=== PATIENT | female | born 2000 | race Caucasian/White ===

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

== ENCOUNTER 2019-10-19 13:10 | Emergency (ER) | payer SELFPAY ==
[~2019-10-19] VITALS: Ht 170.2 cm; Wt 113.6 kg
[~2019-10-19 13:10] MED LIST changes: +ACE65ERTAB PO; +BACT800T5 PO; +CIPR-249 PO; +HYDR-3715 PO; +K-TA1TAB PO; +KETO10TAB PO; +MEDR1VL IM; +NAPR-837 PO; -NAPR500T PO; +NORC1TAB7 PO; +PENI500T PO; +PERC5TAB12 PO; +PYRI1TAB5 PO; +ZOFR4TAB14 PO
[2019-10-19] MEDS ORDERED: CETACAINE SPRAY 5GM As Ordered ONE (13:33)
[2019-10-19] MEDS ORDERED: ETHYL CHLORIDE AER SPRAY 105 ML TOP ONE (13:45)
[2019-10-19] MEDS ORDERED: IBUP-1022 PO (14:12)
[2019-10-19] MEDS ORDERED: AUGM875T28 PO (14:12)
[2019-10-19 14:19] VITALS: BP 148/76
== END 2019-10-19 14:33 | disposition home or self-care (01) ==
LOC: M ED 13:10
DX: L05.91 Pilonidal cyst without abscess (principal); Z88.8 Allergy status to other drugs, medicaments and biological substances

== ENCOUNTER 2020-03-16 06:22 | Emergency (ER) | payer SELFPAY ==
[~2020-03-16] VITALS: Ht 170.2 cm; Wt 106.9 kg
[~2020-03-16 06:22] MED LIST changes: +AUGM875T28 PO; +IBUP-1022 PO
[2020-03-16] MEDS ORDERED: NS 1,000 ML IV ONE (06:45)
[2020-03-16 07:18] LABS: BASO # 0.1 10^3/uL (0.0-0.2); BASO % 0.4 % (0.0-1.0); EOS # 0.3 10^3/uL (0.0-0.5); EOS % 2.3 % (0.0-3.0); HEMATOCRIT 40.6 % (36.0-47.0); HEMOGLOBIN 13.5 g/dl (12.0-15.5); LYMPH # 3.2 10^3/uL (1.5-5.0); MEAN CORPUSCULAR HEMOGLOBIN 28.5 pg (27.0-33.0); MEAN CORPUSCULAR HGB CONC 33.3 g/dl (32.0-36.5); MEAN CORPUSCULAR VOLUME 85.8 fl (80.0-96.0); MONO # 0.5 10^3/uL (0.0-0.8); MONO % 3.6 % (0.0-5.0); NEUTROPHILS # 10.5 10^3/uL (1.5-8.5); NEUTROPHILS % 71.4 % (36.0-66.0); PLATELET COUNT, AUTOMATED 389 10^3/uL (150-450); RED BLOOD COUNT 4.73 10^6/uL (4.00-5.40); WHITE BLOOD COUNT 14.8 10^3/uL (4.0-10.0)
[2020-03-16] MEDS ORDERED: ISOVUE-370 76% 100ML VIAL As Ordered ONE (07:39)
[2020-03-16 07:41] LABS: BILIRUBIN,DIRECT 0.1 MG/DL (0.0-0.2); BILIRUBIN,TOTAL 0.3 MG/DL (0.2-1.0); TOTAL PROTEIN 7.9 GM/DL (6.4-8.2)
[2020-03-16] MEDS ORDERED: KETOROLAC 30 MG/ML 1ML VIAL IV ONE (07:45)
--- NOTE | 2020-03-16 08:12 | REPVR ---
PROCEDURE INFORMATION: Exam: CT Abdomen And Pelvis With Contrast Exam date and time: 03/16/2020 7:25 AM Age: 19 years old Clinical indication: Abdominal pain; Flank; Right lower quadrant (rlq); Additional info: Right flank, rlq pain with hematuria TECHNIQUE: Imaging protocol: Computed tomography of the abdomen and pelvis with intravenous contrast. Radiation optimization: All CT scans at this facility use at least one of these dose optimization techniques: automated exposure control; mA and/or kV adjustment per patient size (includes targeted exams where dose is matched to clinical indication); or iterative reconstruction. Contrast material: ISOVUE 370; Contrast volume: 100 ml; Contrast route: INTRAVENOUS (IV); COMPARISON: RENAL US 12/11/2017 4:36 PM FINDINGS: Mediastinal space: There is small sliding hiatal hernia. Liver: Normal. No mass. Gallbladder and bile ducts: Normal. No calcified stones. No ductal dilation. Pancreas: Normal. No ductal dilation. Spleen: Normal. No splenomegaly. Adrenals: Normal. No mass. Kidneys and ureters: There is a 2-3 mm obstructing stone in the distal right ureter with mild to moderate proximal hydronephrosis and hydroureter. Stomach and bowel: Unremarkable. No obstruction. No mucosal thickening. Appendix: No evidence of appendicitis. Intraperitoneal space: Unremarkable. No free air. No significant fluid collection. Vasculature: Unremarkable. No abdominal aortic aneurysm. Lymph nodes: Unremarkable. No enlarged lymph nodes. Bladder: Unremarkable as visualized. Reproductive: There is a 7.8 x 5.9 x 5.8 cm right adnexal mass containing fat and soft tissue density. Bones/joints: There is bilateral L5 spondylolysis with grade 1 anterolisthesis of L5 on S1. No acute fracture. Soft tissues: Unremarkable. IMPRESSION: 1. No CT evidence of acute appendicitis. 2. 2-3 mm distal right ureteral obstructing stone with mild to moderate proximal hydronephrosis. 3. 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 4. Small sliding hiatal hernia. Electronically signed by: Clifford Vasques On 03/16/2020 08:12:11 AM
[2020-03-16] MEDS ORDERED: cefTRIAXone SOD 1 GM in D5W MINI-BAG PLUS 50 ML IV ONE (08:45)
[2020-03-16] MEDS ORDERED: TAMSULOSIN 0.4 MG CAP PO ONE (08:45)
--- NOTE | 2020-03-16 11:09 | REP ---
PELVIC SONOGRAPHY: HISTORY: Large cyst seen on CT study from March 16, 2020. Rule out torsion. FINDINGS: Uterine dimensions are normal measured at 6.6 x 2.7 x 3.3 cm. Endometrial echo is 0.7 cm thick. No focal uterine mass is seen. The complex dermoid cyst seen by CT is noted by sonography. This appears to occupy the entire right adnexa measuring 8.9 x 4.8 x 6.6 cm. There is Doppler flow in the right ovary with resistive index 0.78. The left ovary is normal measuring 3.4 x 2.6 x 2.8 cm. Its Doppler flow is normal with resistive index 0.57. No free cul-de-sac fluid is visible by ultrasound. IMPRESSION: 8.9 cm dermoid cyst right ovary. Doppler flow is present in both ovaries. Otherwise negative pelvic sonography. Electronically Signed by Balaji Navarro MD 03/16/2020 11:27 A
[2020-03-16] MEDS ORDERED: CIPR-249 PO (11:14)
[2020-03-16] MEDS ORDERED: FLOM0.4C39 PO (11:15)
[2020-03-16 11:26] VITALS: BP 126/63
== END 2020-03-16 11:28 | disposition home or self-care (01) ==
LOC: M ED 06:22
DX: N10 Acute pyelonephritis (principal); N20.0 Calculus of kidney; N83.201 Unspecified ovarian cyst, right side; K21.9 Gastro-esophageal reflux disease without esophagitis; Z79.899 Other long term (current) drug therapy; Z88.8 Allergy status to other drugs, medicaments and biological substances
CPT/HCPCS: 36415; 74177; 76830; 76856; 80047; 80076; 81001; 83690; 84702; 85025; 87086; 93976; 96361; 96365; 96375; 99284; J0696; J1885; Q9967

== ENCOUNTER 2020-03-19 10:40 | Emergency (ER) | payer SELFPAY ==
[~2020-03-19] VITALS: Ht 170.2 cm; Wt 72.7 kg
[~2020-03-19 10:40] MED LIST changes: +FLOM0.4C39 PO
[2020-03-19 11:53] LABS: BASO % 0.4 % (0.0-1.0); EOS # 0.3 10^3/uL (0.0-0.5); EOS % 2.6 % (0.0-3.0); HEMATOCRIT 41.1 % (36.0-47.0); HEMOGLOBIN 13.2 g/dl (12.0-15.5); LYMPH # 2.3 10^3/uL (1.5-5.0); LYMPH % 20.9 % (24.0-44.0); MEAN CORPUSCULAR HEMOGLOBIN 27.7 pg (27.0-33.0); MEAN CORPUSCULAR HGB CONC 32.1 g/dl (32.0-36.5); MEAN CORPUSCULAR VOLUME 86.3 fl (80.0-96.0); MONO # 0.5 10^3/uL (0.0-0.8); MONO % 4.7 % (0.0-5.0); NEUTROPHILS # 7.7 10^3/uL (1.5-8.5); NEUTROPHILS % 70.9 % (36.0-66.0); PLATELET COUNT, AUTOMATED 348 10^3/uL (150-450); RED BLOOD COUNT 4.76 10^6/uL (4.00-5.40); WHITE BLOOD COUNT 10.8 10^3/uL (4.0-10.0)
[2020-03-19 12:03] VITALS: BP 143/67
== END 2020-03-19 12:13 | disposition home or self-care (01) ==
LOC: M ED 10:40
DX: N94.89 Other specified conditions associated with female genital organs and menstrual cycle (principal); J45.909 Unspecified asthma, uncomplicated; Z88.8 Allergy status to other drugs, medicaments and biological substances

== ENCOUNTER → 2020-10-11 | Outpatient (CLI) | payer SELFPAY | LOC: M LABSMTC 11:06 | PROVIDERS: ATTEND Pediatrics | DX: Z20.822 Contact with and (suspected) exposure to COVID-19 (principal) ==

== ENCOUNTER 2022-07-05 18:04 | Emergency (ER) | payer MEDICAID, OTHER, SELFPAY ==
[~2022-07-05] VITALS: Ht 170.2 cm; Wt 81.8 kg
[2022-07-05 18:35] LABS: BASO % 0.2 % (0.0-1.0); EOS # 0.3 10^3/uL (0.0-0.5); EOS % 2.1 % (0.0-3.0); HEMATOCRIT 34.5 % (36.0-47.0); HEMOGLOBIN 11.6 g/dl (12.0-15.5); LYMPH # 3.2 10^3/uL (1.5-5.0); LYMPH % 19.9 % (24.0-44.0); MEAN CORPUSCULAR HEMOGLOBIN 31.1 pg (27.0-33.0); MEAN CORPUSCULAR HGB CONC 33.6 g/dl (32.0-36.5); MEAN CORPUSCULAR VOLUME 92.5 fl (80.0-96.0); MONO # 0.8 10^3/uL (0.0-0.8); MONO % 5.1 % (2.0-8.0); NEUTROPHILS # 11.6 10^3/uL (1.5-8.5); NEUTROPHILS % 72.2 % (36.0-66.0); PLATELET COUNT, AUTOMATED 304 10^3/uL (150-450); RED BLOOD COUNT 3.73 10^6/uL (4.00-5.40); WHITE BLOOD COUNT 16.1 10^3/uL (4.0-10.0)
[2022-07-05 19:14] LABS: BLOOD UREA NITROGEN 5 MG/DL (7-18); CARBON DIOXIDE LEVEL 23 MEQ/L (21-32); CHLORIDE LEVEL 109 MEQ/L (98-107); CREATININE FOR GFR 0.76 MG/DL (0.55-1.30); GLOMERULAR FILTRATION RATE > 60.0 (>60); GLUCOSE, FASTING 88 MG/DL (70-100); POTASSIUM SERUM 3.4 MEQ/L (3.5-5.1); SODIUM LEVEL 139 MEQ/L (136-145)
[2022-07-05 19:50] LABS: APPEARANCE, URINE MANUAL HAZY (CLEAR); COLOR, URINE MANUAL YELLOW (YELLOW)
[2022-07-05 20:00] LABS: GLUCOSE, URINE (UA) MANUAL NEGATIVE (NEGATIVE); KETONE, URINE MANUAL NEGATIVE (NEGATIVE); PROTEIN, URINE MANUAL TRACE mg/dL (NEGATIVE); UROBILINOGEN, URINE MANUAL NORMAL (NORMAL)
[2022-07-05 20:01] LABS: BILIRUBIN, URINE MANUAL NEGATIVE (NEGATIVE); BLOOD URINE MANUAL POSITIVE (NEGATIVE); LEUKOCYTE ESTERASE, URINE MAN POSITIVE (NEGATIVE); NITRITE, URINE MANUAL POSITIVE (NEGATIVE)
[2022-07-05 20:11] LABS: WBC, URINE 15-20 /hpf (0-3)
[2022-07-05 20:12] LABS: BACTERIA, URINE LARGE AMOUNT; CALCIUM OXALATE CRYSTALS,URINE SMALL AMOUNT /hpf; MUCUS, URINE MOD AMOUNT (NEGATIVE); SQUAMOUS EPITHELIAL CELL URINE LARGE AMOUNT /hpf (SMALL AMT)
[2022-07-05 20:13] LABS: HYALINE CAST, URINE NONE SEEN /lpf (0-1)
[2022-07-05] MEDS ORDERED: NITROFURANTOIN (MACROBID) 100 MG CAP PO ONE (20:50)
[2022-07-05] MEDS ORDERED: NITR1CAP11 PO (20:51)
[2022-07-05 21:01] VITALS: BP 137/82
== END 2022-07-05 21:05 | disposition home or self-care (01) ==
LOC: M ED 18:04
DX: O23.42 Unspecified infection of urinary tract in pregnancy, second trimester (principal); O43.92 Unspecified placental disorder, second trimester; Z3A.17 17 weeks gestation of pregnancy; Z79.899 Other long term (current) drug therapy; Z88.8 Allergy status to other drugs, medicaments and biological substances

== ENCOUNTER → 2022-07-23 | Outpatient (CLI) | payer OTHER ==
[~2022-07-23] MED LIST changes: +NITR1CAP11 PO
[2022-07-23 16:05] LABS: BASO % 0.3 % (0.0-1.0); EOS # 0.3 10^3/uL (0.0-0.5); EOS % 2.1 % (0.0-3.0); HEMATOCRIT 38.5 % (36.0-47.0); HEMOGLOBIN 12.5 g/dl (12.0-15.5); LYMPH # 2.4 10^3/uL (1.5-5.0); LYMPH % 18.4 % (24.0-44.0); MEAN CORPUSCULAR HEMOGLOBIN 30.9 pg (27.0-33.0); MEAN CORPUSCULAR HGB CONC 32.5 g/dl (32.0-36.5); MEAN CORPUSCULAR VOLUME 95.3 fl (80.0-96.0); MONO # 0.6 10^3/uL (0.0-0.8); MONO % 4.4 % (2.0-8.0); NEUTROPHILS # 9.7 10^3/uL (1.5-8.5); NEUTROPHILS % 74.2 % (36.0-66.0); PLATELET COUNT, AUTOMATED 308 10^3/uL (150-450); RED BLOOD COUNT 4.04 10^6/uL (4.00-5.40)
[2022-07-23 17:40] LABS: HEPATITIS C VIRUS ABY INDEX < 0.0 INDEX (<0.8); HIV 1&2 SCREEN CENTAUR NEGATIVE (NEGATIVE)
[2022-07-23 17:48] LABS: GC DNA AMPLIFICATION NEGATIVE (NEGATIVE)
== END ==
LOC: M PLALAB 13:13
PROVIDERS: ATTEND Advanced Practice Midwife
DX: O30.042 Twin pregnancy, dichorionic/diamniotic, second trimester (principal); Z3A.00 Weeks of gestation of pregnancy not specified

== ENCOUNTER → 2022-08-04 | Outpatient (CLI) | payer MEDICAID | LOC: M WHC 10:07 | PROVIDERS: ATTEND Specialist | DX: Z36.89 Encounter for other specified antenatal screening (principal); Z3A.21 21 weeks gestation of pregnancy ==

== ENCOUNTER 2022-08-07 03:56 | Emergency (ER) | payer MEDICAID ==
[~2022-08-07] VITALS: Ht 170.2 cm; Wt 85.4 kg
[2022-08-07 03:57] VITALS: BP 136/67
[2022-08-07] MEDS ORDERED: MACR100C43 PO (13:47)
[2022-08-07] MEDS ORDERED: ONDA4TAB6 PO (13:48)
== END 2022-08-07 04:08 | disposition admitted as inpatient to this hospital (09) ==
LOC: M ED 03:56
DX: Z53.21 Procedure and treatment not carried out due to patient leaving prior to being seen by health care provider (principal)

== ENCOUNTER 2022-08-07 04:10 | Outpatient (CLI) | payer MEDICAID ==
[~2022-08-07] VITALS: Ht 170.2 cm; Wt 85.4 kg
[2022-08-07 04:48] VITALS: BP 126/72
[2022-08-07 05:48] LABS: APPEARANCE, URINE MANUAL CLOUDY (CLEAR); COLOR, URINE MANUAL YELLOW (YELLOW)
[2022-08-07 05:49] LABS: PROTEIN, URINE MANUAL 1+ mg/dL (NEGATIVE); SPECIFIC GRAVITY,URINE MANUAL 1.015 (1.002-1.035)
[2022-08-07 05:50] LABS: BILIRUBIN, URINE MANUAL NEGATIVE (NEGATIVE); BLOOD URINE MANUAL TRACE (NEGATIVE); GLUCOSE, URINE (UA) MANUAL NEGATIVE (NEGATIVE); KETONE, URINE MANUAL NEGATIVE (NEGATIVE); LEUKOCYTE ESTERASE, URINE MAN POSITIVE (NEGATIVE); NITRITE, URINE MANUAL POSITIVE (NEGATIVE); UROBILINOGEN, URINE MANUAL NORMAL (NORMAL)
[2022-08-07 05:53] LABS: HEMATOCRIT 36.9 % (36.0-47.0); HEMOGLOBIN 12.5 g/dl (12.0-15.5); MEAN CORPUSCULAR HEMOGLOBIN 32.1 pg (27.0-33.0); MEAN CORPUSCULAR HGB CONC 33.9 g/dl (32.0-36.5); MEAN CORPUSCULAR VOLUME 94.9 fl (80.0-96.0); PLATELET COUNT, AUTOMATED 314 10^3/uL (150-450); RED BLOOD COUNT 3.89 10^6/uL (4.00-5.40); WHITE BLOOD COUNT 18.3 10^3/uL (4.0-10.0)
[2022-08-07 05:55] LABS: BACTERIA, URINE LARGE AMOUNT
[2022-08-07 05:56] LABS: HYALINE CAST, URINE NONE SEEN /lpf (0-1); MUCUS, URINE LARGE AMOUNT (NEGATIVE); SQUAMOUS EPITHELIAL CELL URINE MOD AMOUNT /hpf (SMALL AMT)
[2022-08-07] MEDS ORDERED: ONDANSETRON 4MG 2ML VIAL IV ONE (06:25)
[2022-08-07] MEDS ORDERED: ONDANSETRON 4MG 2ML VIAL As Ordered ONE (06:28)
[2022-08-07 06:35] LABS: ALBUMIN 3.3 GM/DL (3.2-5.2); ALT/SGPT 9 U/L (12-78); BILIRUBIN,TOTAL 0.2 MG/DL (0.2-1.0); BLOOD UREA NITROGEN 9 MG/DL (7-18); CALCIUM LEVEL 9.2 MG/DL (8.5-10.1); CARBON DIOXIDE LEVEL 23 MEQ/L (21-32); CHLORIDE LEVEL 108 MEQ/L (98-107); CREATININE FOR GFR 0.68 MG/DL (0.55-1.30); GLOMERULAR FILTRATION RATE > 60.0 (>60); GLUCOSE, FASTING 85 MG/DL (70-100); POTASSIUM SERUM 3.9 MEQ/L (3.5-5.1); SODIUM LEVEL 136 MEQ/L (136-145); TOTAL PROTEIN 6.8 GM/DL (6.4-8.2)
[2022-08-07] MEDS ORDERED: cefTRIAXone SOD 2 GM in D5W MINI-BAG PLUS 50 ML IV SCH (09:25)
[2022-08-07 10:48] VITALS: BP 146/88
[2022-08-07] MEDS ORDERED: ONDANSETRON 4MG 2ML VIAL IV PRN (11:15)
[2022-08-07 11:29] VITALS: BP 138/77
[2022-08-07] MEDS ORDERED: BICITRA 30ML SOLN UDC PO ONE (11:35)
[2022-08-07] MEDS ORDERED: MACR100C43 PO (13:47)
[2022-08-07] MEDS ORDERED: ONDA4TAB6 PO (13:48)
[2022-08-07 13:49] VITALS: BP 144/75
== END 2022-08-07 14:15 | disposition home or self-care (01) ==
LOC: M LDO 04:10
PROVIDERS: ATTEND Advanced Practice Midwife
DX: O23.42 Unspecified infection of urinary tract in pregnancy, second trimester (principal); Z3A.21 21 weeks gestation of pregnancy
CPT/HCPCS: 80053; 81000; 85027; 87486; 87581; 87633; 87798; 96374; 96376; J0696; J2405

== ENCOUNTER 2022-09-19 06:39 | Inpatient (IN) | payer MEDICAID ==
[~2022-09-19] VITALS: Ht 160 cm; Wt 82.0 kg
[2022-09-19] VITALS (58 sets, daily range): BP systolic 144–194; BP diastolic 67–108
[~2022-09-19 06:39] MED LIST changes: +MACR100C43 PO; +ONDA4TAB6 PO
[2022-09-19] MEDS ORDERED: ceFAZolin 2 GM/D5W 50 ML IV BAG As Ordered ONE (07:12)
[2022-09-19] MEDS ORDERED: MIDAZOLAM INJ 2MG/2ML VIAL (J2250 PER 1MG) As Ordered ONE (07:24)
[2022-09-19] MEDS ORDERED: MULTTAB20 PO (07:25)
[2022-09-19] MEDS ORDERED: propofoL 200 MG/20 ML VIAL As Ordered ONE (07:25)
[2022-09-19] MEDS ORDERED: ONDANSETRON 4MG 2ML VIAL As Ordered ONE (07:25)
[2022-09-19] MEDS ORDERED: SUCCINYLCHOLINE 100MG/5ML SYRINGE As Ordered ONE (07:25)
[2022-09-19] MEDS ORDERED: fentaNYL 100 MCG/2 ML INJECTION As Ordered ONE (07:25)
[2022-09-19] MEDS ORDERED: ACETAMINOPHEN 1000MG 100ML IV BAG As Ordered ONE (07:27)
[2022-09-19] MEDS ORDERED: OXYTOCIN 30UNITS IN 0.9% NaCl 500ML IV BAG As Ordered ONE (07:46)
[2022-09-19] MEDS ORDERED: KETOROLAC 60MG 2ML VIAL As Ordered ONE (07:46)
[2022-09-19] MEDS ORDERED: ceFAZolin SOD 2 GM in IV 1 EA IV STA (07:50)
[2022-09-19] MEDS ORDERED: LR 1,000 ML IV SCH ×2 (07:50→08:15)
[2022-09-19] MEDS ORDERED: RHOGAM 300MCG (1500IU) INJ IM SCH (08:00)
[2022-09-19] MEDS ORDERED: OXYTOCIN DRIP 30 UNITS in IV 1 EA IV SCH (08:00)
[2022-09-19] MEDS ORDERED: fentaNYL 100 MCG/2 ML INJECTION IV PRN (08:15)
[2022-09-19] MEDS ORDERED: PROMETHAZINE 25MG/ML 1ML VIAL IV PRN (08:15)
[2022-09-19] MEDS ORDERED: METOCLOPRAMIDE INJ 10MG/2ML VIAL IV PRN (08:15)
[2022-09-19] MEDS ORDERED: oxyCODONE 5MG TAB PO PRN (08:15)
[2022-09-19] MEDS ORDERED: HYDROMORPHONE HCL 0.5 MG/ 0.5 ML SYRINGE (J1170 PER 1) IV PRN (08:15)
[2022-09-19 08:57] LABS: HEMOGLOBIN 11.8 g/dl (12.0-15.5); MEAN CORPUSCULAR HEMOGLOBIN 32.5 pg (27.0-33.0); MEAN CORPUSCULAR HGB CONC 33.7 g/dl (32.0-36.5); MEAN CORPUSCULAR VOLUME 96.4 fl (80.0-96.0); PLATELET COUNT, AUTOMATED 247 10^3/uL (150-450); RED BLOOD COUNT 3.63 10^6/uL (4.00-5.40); WHITE BLOOD COUNT 24.4 10^3/uL (4.0-10.0)
[2022-09-19] MEDS: PERCOCET 5MG/325MG TAB PO PRN ×3 (13:01→22:11)
[2022-09-19 13:05] LABS: BASO # 0.1 10^3/uL (0.0-0.2); BASO % 0.2 % (0.0-1.0); EOS % 0.1 % (0.0-3.0); LYMPH # 1.4 10^3/uL (1.5-5.0); LYMPH % 5.6 % (24.0-44.0); MONO # 0.6 10^3/uL (0.0-0.8); MONO % 2.6 % (2.0-8.0); NEUTROPHILS # 22.1 10^3/uL (1.5-8.5); NEUTROPHILS % 90.9 % (36.0-66.0)
[2022-09-19] MEDS: KETOROLAC 30 MG/ML 1ML VIAL IV SCH ×2 (13:05→20:47)
[2022-09-19 13:07] LABS: URIC ACID 4.3 MG/DL (3.1-7.8)
[2022-09-19 13:09] LABS: LDH LACTATE DEHYDROGENASE 188 U/L (120-246)
[2022-09-19 13:10] LABS: ALT/SGPT < 9 U/L (7.0-40); AST/SGOT 16 U/L (<34); BILIRUBIN,TOTAL 0.2 MG/DL (0.3-1.2); CREATININE FOR GFR 0.52 MG/DL (0.55-1.30); GLOMERULAR FILTRATION RATE > 60.0 (>60)
[2022-09-19 13:45] LABS: AMPHETAMINES URINE REFLEX NEGATIVE (NEGATIVE); BARBITURATES URINE REFLEX NEGATIVE (NEGATIVE); COCAINE METABOLITE URINE REFLE NEGATIVE (NEGATIVE); METHADONE URINE REFLEX NEGATIVE (NEGATIVE); OPIATES URINE REFLEX NEGATIVE (NEGATIVE); PHENCYCLIDINE URINE REFLEX NEGATIVE (NEGATIVE)
[2022-09-19 15:15] LABS: BENZODIAZEPINES URINE REFLEX PENDING CONFIRMATION (NEGATIVE); CANNABINOIDS URINE REFLEX PENDING CONFIRMATION (NEGATIVE)
[2022-09-19] MEDS: DOCUSATE SODIUM 100MG CAPSULE PO SCH ×2 (15:37→21:17)
[2022-09-19] MEDS: PRENATAL VITAMINS CHEWABLE TABLET PO SCH (15:37)
[2022-09-19] MEDS: LABETALOL 200 MG TAB PO SCH ×2 (15:51→21:16)
[2022-09-19] MEDS: SIMETHICONE 80MG CHEW TAB PO PRN (17:13)
[2022-09-19] MEDS ORDERED: LABETALOL 100MG/20ML VIAL IV STA ×2 (18:51→19:43)
[2022-09-20] VITALS (39 sets, daily range): BP systolic 116–179; BP diastolic 56–95
[2022-09-20] MEDS: KETOROLAC 30 MG/ML 1ML VIAL IV SCH (02:49)
[2022-09-20] MEDS: SIMETHICONE 80MG CHEW TAB PO PRN (04:03)
[2022-09-20] MEDS: PERCOCET 5MG/325MG TAB PO PRN ×3 (04:11→20:21)
[2022-09-20 08:35] LABS: HEMATOCRIT 31.9 % (36.0-47.0); HEMOGLOBIN 10.6 g/dl (12.0-15.5); MEAN CORPUSCULAR HEMOGLOBIN 32.2 pg (27.0-33.0); MEAN CORPUSCULAR HGB CONC 33.2 g/dl (32.0-36.5); PLATELET COUNT, AUTOMATED 182 10^3/uL (150-450); RED BLOOD COUNT 3.29 10^6/uL (4.00-5.40); WHITE BLOOD COUNT 23.9 10^3/uL (4.0-10.0)
[2022-09-20 08:56] LABS: URIC ACID 4.4 MG/DL (3.1-7.8)
[2022-09-20 08:58] LABS: LDH LACTATE DEHYDROGENASE 221 U/L (120-246)
[2022-09-20 09:00] LABS: ALT/SGPT < 9 U/L (7.0-40); AST/SGOT 20 U/L (<34); BILIRUBIN,TOTAL 0.3 MG/DL (0.3-1.2); CREATININE FOR GFR 0.49 MG/DL (0.55-1.30); GLOMERULAR FILTRATION RATE > 60.0 (>60)
[2022-09-20] MEDS: IBUPROFEN 800 MG TAB PO SCH ×2 (09:10→17:45)
[2022-09-20] MEDS: LABETALOL 200 MG TAB PO SCH ×2 (09:11→18:34)
[2022-09-20] MEDS: DOCUSATE SODIUM 100MG CAPSULE PO SCH ×2 (09:11→20:17)
[2022-09-20] MEDS: PRENATAL VITAMINS CHEWABLE TABLET PO SCH (09:11)
[2022-09-21 02:00] VITALS: BP 156/90
[2022-09-21] MEDS: SIMETHICONE 80MG CHEW TAB PO PRN (02:01)
[2022-09-21] MEDS: IBUPROFEN 800 MG TAB PO SCH ×2 (02:02→10:17)
[2022-09-21 06:00] VITALS: BP 138/80
[2022-09-21] MEDS: PERCOCET 5MG/325MG TAB PO PRN (08:55)
[2022-09-21] MEDS ORDERED: MEASLES,MUMPS,RUBELLA VACCINE INJ (MMR-II) SC.IMMUN ONE (09:00)
[2022-09-21 09:40] VITALS: BP_SYST 138; BP_SYST 143; BP_DIAS 69; BP_DIAS 80
[2022-09-21] MEDS: PRENATAL VITAMINS CHEWABLE TABLET PO SCH (09:43)
[2022-09-21] MEDS: DOCUSATE SODIUM 100MG CAPSULE PO SCH (09:43)
[2022-09-21 09:44] VITALS: BP 143/69
[2022-09-21] MEDS: LABETALOL 200 MG TAB PO SCH (09:44)
[2022-09-21] MEDS ORDERED: OMEP-173 PO (11:16)
[2022-09-21] MEDS ORDERED: COLA100C5 PO (11:16)
[2022-09-21] MEDS ORDERED: LABE100T6 PO (11:16)
[2022-09-21] MEDS ORDERED: IBUP80TA PO (11:16)
[2022-09-21] MEDS ORDERED: PERCOCET PO (11:16)
[2022-09-21] MEDS ORDERED: OMEPRAZOLE 20MG CAP PO SCH (11:20)
[2022-09-21] MEDS ORDERED: LABETALOL 100MG TAB PO SCH (21:00)
[2022-09-30 11:08] LABS: Benzodiazepines Negative (Cutoff=300); Cannabinoid Positive (.); Carboxy THC Conf, MS, UR >300 ng/mL (Cutoff=10)
== END 2022-09-21 14:35 | disposition home or self-care (01) | DRG 540 ==
LOC: M LDO 06:39 → M LDI 07:01 → M OBS 09-20 08:03
PROVIDERS: ADMIT Obstetrics & Gynecology; ATTEND Obstetrics & Gynecology
PROC: 10D00Z1 Extraction of Products of Conception, Low, Open Approach (ICD-10-PCS; principal; 2022-09-19 07:08)
DX: O76 Abnormality in fetal heart rate and rhythm complicating labor and delivery (principal); O45.92 Premature separation of placenta, unspecified, second trimester; O60.13X0 Preterm labor second trimester with preterm delivery third trimester, not applicable or unspecified; E66.9 Obesity, unspecified; O99.214 Obesity complicating childbirth; O13.2 Gestational [pregnancy-induced] hypertension without significant proteinuria, second trimester; Z3A.27 27 weeks gestation of pregnancy; O32.1XX0 Maternal care for breech presentation, not applicable or unspecified; Z37.1 Single stillbirth; O69.82X0 Labor and delivery complicated by other cord entanglement, without compression, not applicable or unspecified; Z88.8 Allergy status to other drugs, medicaments and biological substances

== ENCOUNTER 2022-10-21 08:38 | Observation (INO) | payer MEDICAID, OTHER ==
[~2022-10-21] VITALS: Ht 170.2 cm; Wt 83.6 kg
[~2022-10-21 08:38] MED LIST changes: +COLA100C5 PO; +IBUP80TA PO; +LABE100T6 PO; +MULTTAB20 PO; +OMEP-173 PO; +PERCOCET PO
[2022-10-21] MEDS ORDERED: MORPHINE 2 MG/ML 1ML VIAL IV ONE (09:50)
[2022-10-21] MEDS ORDERED: ONDANSETRON 4MG 2ML VIAL IV ONE (09:50)
[2022-10-21] MEDS ORDERED: NS 1,000 ML IV ONE (09:50)
[2022-10-21 09:53] LABS: BASO % 0.1 % (0.0-1.0); EOS # 0.1 10^3/uL (0.0-0.5); EOS % 0.3 % (0.0-3.0); HEMATOCRIT 34.3 % (36.0-47.0); HEMOGLOBIN 11.1 g/dl (12.0-15.5); LYMPH # 1.2 10^3/uL (1.5-5.0); LYMPH % 4.6 % (24.0-44.0); MEAN CORPUSCULAR HEMOGLOBIN 29.1 pg (27.0-33.0); MEAN CORPUSCULAR HGB CONC 32.4 g/dl (32.0-36.5); MONO % 3.7 % (2.0-8.0); NEUTROPHILS # 24.3 10^3/uL (1.5-8.5); NEUTROPHILS % 89.9 % (36.0-66.0); PLATELET COUNT, AUTOMATED 370 10^3/uL (150-450); RED BLOOD COUNT 3.81 10^6/uL (4.00-5.40)
[2022-10-21 10:19] LABS: HCG, SERUM QUALITATIVE NEGATIVE (NEGATIVE)
[2022-10-21 10:39] LABS: ALBUMIN 3.1 G/DL (3.2-5.2); ALKALINE PHOSPHATASE 117 U/L (46-116); ALT/SGPT < 9 U/L (7.0-40); AST/SGOT 9 U/L (<34); BILIRUBIN,DIRECT 0.2 MG/DL (<0.4); BILIRUBIN,TOTAL 0.5 MG/DL (0.3-1.2); BLOOD UREA NITROGEN 23 MG/DL (9-23); CALCIUM LEVEL 9.5 MG/DL (8.5-10.1); CARBON DIOXIDE LEVEL 24 MMOL/L (20-31); CHLORIDE LEVEL 102 MMOL/L (98-107); CREATININE FOR GFR 1.05 MG/DL (0.55-1.30); GLOMERULAR FILTRATION RATE > 60.0 (>60); GLUCOSE, FASTING 84 MG/DL (60-100); LIPASE 20 U/L (12-53); POTASSIUM SERUM 3.3 MMOL/L (3.5-5.1); SODIUM LEVEL 137 MMOL/L (136-145); TOTAL PROTEIN 7.6 G/DL (5.7-8.2)
[2022-10-21] MEDS ORDERED: MORPHINE 4 MG/ML 1ML VIAL IV ONE (10:55)
[2022-10-21] MEDS ORDERED: ISOVUE-370 76% 100ML VIAL As Ordered ONE (11:02)
[2022-10-21] MEDS ORDERED: cefTRIAXone SOD 1 GM in D5W MINI-BAG PLUS 50 ML IV ONE (12:45)
[2022-10-21] MEDS ORDERED: KETOROLAC 30 MG/ML 1ML VIAL IV ONE (12:55)
[2022-10-21] MEDS ORDERED: AMPICILLIN SOD 2 GM in D5W 50 ML IV SCH (14:45)
[2022-10-21] MEDS ORDERED: D5W IV ONE (14:45)
[2022-10-21] MEDS ORDERED: LR 1,000 ML IV SCH (14:45)
[2022-10-21] MEDS ORDERED: CLINDAMYCIN 600 MG in IV 1 EA IV SCH (14:45)
[2022-10-21] MEDS ORDERED: GENTAMICIN IV ONE (14:45)
[2022-10-21] MEDS: LR 1,000 ML IV SCH ×2 (15:40→22:23)
[2022-10-21] MEDS ORDERED: HOME MED LIST COMPLETE! XX SCH (16:25)
[2022-10-21] MEDS: AMPICILLIN SOD/SULBACTAM SOD 3 GM in D5W MINI-BAG PLUS 100 ML IV SCH ×2 (17:04→22:24)
[2022-10-21] MEDS ORDERED: MORPHINE 2 MG/ML 1ML VIAL IV PRN (17:05)
[2022-10-21] MEDS: PERCOCET 5MG/325MG TAB PO PRN ×2 (17:12→22:47)
[2022-10-21 19:38] LABS: RSV AMPLIFICATION NEGATIVE (NEGATIVE)
[2022-10-21] MEDS: DOCUSATE SODIUM 100MG CAPSULE PO SCH (21:55)
[2022-10-21] MEDS: IBUPROFEN 800 MG TAB PO SCH (21:55)
[2022-10-21] MEDS: ONDANSETRON 4MG 2ML VIAL IV PRN (22:37)
[2022-10-22 02:06] VITALS: BP 119/63
[2022-10-22] MEDS ORDERED: PILL CUTTER 1 EACH XX PRN (03:50)
[2022-10-22] MEDS: AMPICILLIN SOD/SULBACTAM SOD 3 GM in D5W MINI-BAG PLUS 100 ML IV SCH ×4 (05:19→23:03)
[2022-10-22] MEDS: PERCOCET 5MG/325MG TAB PO PRN ×4 (05:21→22:15)
[2022-10-22] MEDS: LR 1,000 ML IV SCH ×3 (05:48→23:03)
[2022-10-22] MEDS: IBUPROFEN 800 MG TAB PO SCH ×3 (05:49→20:02)
[2022-10-22 06:00] VITALS: BP 128/68
[2022-10-22 07:39] LABS: HEMATOCRIT 29.8 % (36.0-47.0); HEMOGLOBIN 9.6 g/dl (12.0-15.5); MEAN CORPUSCULAR HEMOGLOBIN 29.6 pg (27.0-33.0); MEAN CORPUSCULAR HGB CONC 32.2 g/dl (32.0-36.5); PLATELET COUNT, AUTOMATED 344 10^3/uL (150-450); RED BLOOD COUNT 3.24 10^6/uL (4.00-5.40); WHITE BLOOD COUNT 23.1 10^3/uL (4.0-10.0)
[2022-10-22] MEDS: DOCUSATE SODIUM 100MG CAPSULE PO SCH ×2 (09:39→20:01)
[2022-10-22 10:00] VITALS: BP 132/67
[2022-10-22] MEDS: CALCIUM CARBONATE 500 MG CHEW U/D PO PRN (13:01)
[2022-10-22 14:00] VITALS: BP 130/70
[2022-10-22 18:00] VITALS: BP 142/75
[2022-10-22 22:00] VITALS: BP 145/69
[2022-10-23 02:00] VITALS: BP 145/77
[2022-10-23] MEDS: PERCOCET 5MG/325MG TAB PO PRN ×2 (02:11→10:45)
[2022-10-23] MEDS: CALCIUM CARBONATE 500 MG CHEW U/D PO PRN (04:09)
[2022-10-23] MEDS: AMPICILLIN SOD/SULBACTAM SOD 3 GM in D5W MINI-BAG PLUS 100 ML IV SCH ×2 (05:01→10:44)
[2022-10-23] MEDS: IBUPROFEN 800 MG TAB PO SCH ×2 (05:01→13:47)
[2022-10-23 05:38] VITALS: BP 125/69
[2022-10-23] MEDS: ONDANSETRON 4MG 2ML VIAL IV PRN (08:51)
[2022-10-23] MEDS: DOCUSATE SODIUM 100MG CAPSULE PO SCH (08:51)
[2022-10-23] MEDS: LR 1,000 ML IV SCH (08:51)
[2022-10-23 10:00] VITALS: BP 145/78
[2022-10-23 14:00] VITALS: BP 126/68
[2022-10-23] MEDS ORDERED: CEPHALEXIN 500 MG CAP PO SCH (17:00)
[2022-10-23] MEDS ORDERED: CEPH25SS PO (20:14)
[2022-10-23] MEDS ORDERED: CEPH250T PO (20:16)
== END 2022-10-23 18:50 | disposition left against medical advice (07) ==
LOC: M ED 08:38 → M ED INP 08:39 → M OBS 10-22
PROVIDERS: ADMIT Obstetrics & Gynecology; ATTEND Obstetrics & Gynecology
DX: R19.04 Left lower quadrant abdominal swelling, mass and lump (principal); R19.09 Other intra-abdominal and pelvic swelling, mass and lump; C79.89 Secondary malignant neoplasm of other specified sites; N39.0 Urinary tract infection, site not specified; B96.1 Klebsiella pneumoniae [K. pneumoniae] as the cause of diseases classified elsewhere; K76.0 Fatty (change of) liver, not elsewhere classified; Z87.59 Personal history of other complications of pregnancy, childbirth and the puerperium; J45.909 Unspecified asthma, uncomplicated
CPT/HCPCS: 36415; 74177; 80048; 80076; 81000; 81015; 83690; 84703; 85025; 85027; 87088; 87186; 87631; 96361; 96365; 96366; 96367; 96375; 96376; 99284; J0295; J0696; J1885; J2270; J2405

== ENCOUNTER 2023-08-10 17:39 | Emergency (ER) | payer MEDICAID ==
[~2023-08-10] VITALS: Ht 170.2 cm; Wt 76.1 kg
[~2023-08-10 17:39] MED LIST changes: +CEPH250T PO; +CEPH25SS PO
[2023-08-10] MEDS ORDERED: ACET500P3 PO (17:48)
[2023-08-10] MEDS ORDERED: LIDOCAINE 2% MDV 20ML VIAL As Ordered ONE (18:52)
[2023-08-10] MEDS ORDERED: LIDOCAINE 1% MDV 20ML VIAL SC ONE (19:20)
[2023-08-10] MEDS ORDERED: EMLA CREAM 5GM TUBE (LIDOCAINE/PRILOCAINE) TOP ONE (19:20)
[2023-08-10] MEDS ORDERED: PERCOCET 5MG/325MG TAB PO ONE (19:20)
[2023-08-10 19:35] VITALS: BP 136/66; TEMP 96.9; O2SAT 99
[2023-08-10 19:55] LABS: BASO % 0.3 % (0.0-1.0); EOS # 0.3 10^3/uL (0.0-0.5); EOS % 1.8 % (0.0-3.0); HEMATOCRIT 33.6 % (36.0-47.0); HEMOGLOBIN 10.9 g/dl (12.0-15.5); LYMPH # 2.6 10^3/uL (1.5-5.0); LYMPH % 17.7 % (24.0-44.0); MEAN CORPUSCULAR HEMOGLOBIN 30.3 pg (27.0-33.0); MEAN CORPUSCULAR HGB CONC 32.4 g/dl (32.0-36.5); MEAN CORPUSCULAR VOLUME 93.3 fl (80.0-96.0); MONO # 0.7 10^3/uL (0.0-0.8); MONO % 4.8 % (2.0-8.0); PLATELET COUNT, AUTOMATED 348 10^3/uL (150-450); WHITE BLOOD COUNT 14.7 10^3/uL (4.0-10.0)
[2023-08-10 20:05] LABS: ERYTHROCYTE SEDIMENTATION RATE 48 mm/hr (0-20)
[2023-08-10 20:18] LABS: BLOOD UREA NITROGEN 19 MG/DL (9-23); CALCIUM LEVEL 8.7 MG/DL (8.5-10.1); CARBON DIOXIDE LEVEL 27 MMOL/L (20-31); CHLORIDE LEVEL 111 MMOL/L (98-107); CREATININE FOR GFR 0.71 MG/DL (0.55-1.30); GLOMERULAR FILTRATION RATE > 60.0 (>60); GLUCOSE, FASTING 87 MG/DL (60-100); SODIUM LEVEL 144 MMOL/L (136-145)
[2023-08-10] MEDS ORDERED: PERC5TAB12 PO (20:53)
[2023-08-10] MEDS ORDERED: DOXY-443 PO (20:53)
[2023-08-10] MEDS ORDERED: DOXYCYCLINE HYCLATE 100MG TABLET PO ONE (21:00)
[2023-08-10] MEDS ORDERED: OXYCODONE/APAP 5MG/325MG(HOME DOSE PACK) PO ONE (21:00)
== END 2023-08-10 21:17 | disposition home or self-care (01) ==
LOC: M ED 17:39
DX: L02.31 Cutaneous abscess of buttock (principal); Z88.8 Allergy status to other drugs, medicaments and biological substances

== ENCOUNTER 2024-04-01 21:49 | Emergency (ER) | payer MEDICAID ==
[~2024-04-01 21:49] MED LIST changes: +ACET500P3 PO; +DOXY-323 PO; +NITR100C3 PO; -NITR1CAP11 PO; +ONDA-282 PO; -ONDA4TAB6 PO
[2024-04-01 21:50] VITALS: BP 153/88; TEMP 98; O2SAT 100
[2024-04-02] MEDS ORDERED: IBUP200C28 PO (16:35)
[2024-04-02] MEDS ORDERED: BACT800T5 PO (21:18)
== END 2024-04-01 23:28 | disposition left against medical advice (07) ==
LOC: M ED 21:49
DX: Z53.21 Procedure and treatment not carried out due to patient leaving prior to being seen by health care provider (principal)

== ENCOUNTER 2024-04-02 16:24 | Emergency (ER) | payer MEDICAID ==
[~2024-04-02] VITALS: Ht 170.2 cm; Wt 91.8 kg
[2024-04-02] MEDS ORDERED: IBUP200C28 PO (16:35)
[2024-04-02] MEDS: LIDOCAINE W/EPINEPHRINE 1% 20ML VIAL SC ONE (20:50)
[2024-04-02] MEDS ORDERED: BACT800T5 PO (21:18)
[2024-04-02 21:23] VITALS: BP 138/84; TEMP 97; O2SAT 97
== END 2024-04-02 21:28 | disposition home or self-care (01) ==
LOC: M ED 16:24
DX: L02.31 Cutaneous abscess of buttock (principal); L03.317 Cellulitis of buttock; Z88.8 Allergy status to other drugs, medicaments and biological substances

== ENCOUNTER 2025-01-21 00:23 | Emergency (ER) | payer MEDICAID ==
[~2025-01-21] VITALS: Ht 162.6 cm; Wt 89.3 kg
[~2025-01-21 00:23] MED LIST changes: -DOXY-323 PO; +DOXY-441 PO; -FLOM0.4C39 PO; +IBUP200C28 PO; +TAMS-18 PO
[2025-01-21] MEDS ORDERED: AMOX500C PO (01:18)
[2025-01-21] MEDS: AMOXICILLIN 500 MG CAP PO ONE (01:20)
[2025-01-21 01:30] VITALS: BP 128/70; TEMP 97.6; O2SAT 99
== END 2025-01-21 01:31 | disposition home or self-care (01) ==
LOC: M ED 00:23
DX: J02.0 Streptococcal pharyngitis (principal); Z88.8 Allergy status to other drugs, medicaments and biological substances

== ENCOUNTER 2025-05-20 22:48 | Emergency (ER) | payer MEDICAID ==
[~2025-05-20] VITALS: Ht 170.2 cm; Wt 86.2 kg
[~2025-05-20 22:48] MED LIST changes: -ACE65ERTAB PO; +ACET-1593 PO; +AMOX500C PO; -IBUP-1022 PO; +IBUP600T42 PO
[2025-05-21] MEDS: LIDOCAINE 1% MDV 20 ML VIAL IM ONE (06:35)
[2025-05-21] MEDS ORDERED: CEPH500C PO (07:35)
[2025-05-21 07:41] VITALS: BP 107/56; TEMP 97.6; O2SAT 98
== END 2025-05-21 07:44 | disposition home or self-care (01) ==
LOC: M ED 22:48
DX: L05.01 Pilonidal cyst with abscess (principal); J45.909 Unspecified asthma, uncomplicated; Z88.8 Allergy status to other drugs, medicaments and biological substances

== ENCOUNTER 2025-06-27 10:44 | Emergency (ER) | payer MEDICAID, OTHER ==
[~2025-06-27] VITALS: Ht 170.2 cm; Wt 86.5 kg
[~2025-06-27 10:44] MED LIST changes: +CEPH500C PO
[2025-06-27 11:30] LABS: BASO # 0.0 10^3/uL (0.0-0.2); BASO % 0.3 % (0.0-1.0); EOS # 0.2 10^3/uL (0.0-0.5); EOS % 1.9 % (0.0-3.0); LYMPH # 1.1 10^3/uL (1.5-5.0); LYMPH % 9.3 % (24.0-44.0); MONO # 0.3 10^3/uL (0.0-0.8); MONO % 2.8 % (2.0-8.0); NEUTROPHILS # 10.1 10^3/uL (1.5-8.5); NEUTROPHILS % 85.3 % (36.0-66.0); PLATELET COUNT, AUTOMATED 344 10^3/uL (150-450)
[2025-06-27] MEDS: NS (Normal Saline) 0.9% 1,000 ML IV ONE ×2 (11:30→11:36)
[2025-06-27] MEDS: KETOROLAC 30 MG/ML 1 ML VIAL IV ONE (11:36)
[2025-06-27 12:10] LABS: HCG, SERUM QUALITATIVE NEGATIVE (NEGATIVE)
[2025-06-27 12:11] LABS: ALT/SGPT 11 U/L (7.0-40); AST/SGOT 16 U/L (<34); CALCIUM LEVEL 9.6 MG/DL (8.5-10.1); CARBON DIOXIDE LEVEL 18 MMOL/L (20-31); CHLORIDE LEVEL 108 MMOL/L (98-107); CREATININE FOR GFR 0.73 MG/DL (0.55-1.30); GLOMERULAR FILTRATION RATE > 90.0 (>60); POTASSIUM SERUM 3.6 MMOL/L (3.5-5.1); SODIUM LEVEL 137 MMOL/L (136-145)
[2025-06-27] MEDS ORDERED: HOME MED LIST COMPLETE! XX SCH (13:25)
[2025-06-27] MEDS: CALCIUM CARBONATE 500 MG CHEW U/D PO ONE (14:43)
[2025-06-27 15:06] VITALS: BP 139/76; TEMP 98.2; O2SAT 98
== END 2025-06-27 15:17 | disposition home or self-care (01) ==
LOC: M ED 10:44
DX: R11.2 Nausea with vomiting, unspecified (principal); R19.7 Diarrhea, unspecified; J45.909 Unspecified asthma, uncomplicated; Z88.8 Allergy status to other drugs, medicaments and biological substances
CPT/HCPCS: 80047; 80048; 80076; 83690; 84703; 85025; 96361; 96374; 96375; 99284; J1885; J2765